=== PATIENT | male | born 1955 | race Caucasian/White ===

== ENCOUNTER 2025-01-17 11:22 | Inpatient (IN) | payer MEDICARE, MEDICAID ==
[~2025-01-17] VITALS: Ht 170.2 cm; Wt 71.7 kg
[~2025-01-17 11:22] MED LIST: AMOX-457 PO
[2025-01-17 13:14] LABS: BASOPHILS % (AUTO) 0.5 % (0.0-2.0); EOSINOPHILS % (AUTO) 0.6 % (1.0-6.0); HEMOGLOBIN 14.1 g/dL (13.5-17.5); LYMPHOCYTES # (AUTO) 1.6 K/uL (1.0-4.8); LYMPHOCYTES % (AUTO) 22.4 % (22.0-44.0); MEAN CORPUSCULAR HGB CONC 32.9 G/dL (31.0-37.0); MEAN CORPUSCULAR VOLUME 91 fL (80-100); MONOCYTES # (AUTO) 0.5 K/uL (0.1-1.0); MONOCYTES % (AUTO) 6.6 % (2.0-9.0); NEUTROPHILS # (AUTO) 5.1 K/uL (1.8-7.7); NEUTROPHILS % (AUTO) 69.9 % (40.0-70.0); PLATELET COUNT (AUTO) 110 K/uL (150-450); RED BLOOD CELL COUNT(AUTO) 4.71 MIL/uL (4.50-5.90); RED CELL DISTRIBUTION WIDTH 14.5 % (11.5-14.5); WHITE BLOOD COUNT (AUTO) 7.3 K/uL (4.5-11.0)
[2025-01-17 13:22] LABS: ANION GAP 9 mmol/L (8-16); CALCIUM, TOTAL 9.1 mg/dL (8.8-10.5); CARBON DIOXIDE 30 mmol/L (22-29); CHLORIDE 104 mmol/L (98-107); CREATININE 0.98 mg/dL (0.60-1.30); GLOMERULAR FILTR. RATE CALC > 60 mL/min (>60); GLUCOSE,RANDOM 80 mg/dL (70-110); POTASSIUM 4.4 mmol/L (3.5-5.1); SODIUM SERUM 143 mmol/L (136-145); UREA NITROGEN, BLOOD 10 mg/dL (7-18)
[2025-01-17 13:40] LABS: ALCOHOL, BLOOD (SERUM) < 3 mg/dL (0-10)
[2025-01-17 14:16] LABS: APPEARANCE,URINE CLEAR (CLEAR); BILIRUBIN,URINE NEGATIVE (NEGATIVE); COLOR,URINE LIGHT YELLOW (YELLOW); GLUCOSE, URINE (UA) NEGATIVE (NEGATIVE); KETONES,URINE NEGATIVE (NEGATIVE); LEUKOCYTE ESTERASE ,URINE NEGATIVE (NEGATIVE); NITRATE,URINE NEGATIVE (NEGATIVE); OCCULT BLOOD,URINE NEGATIVE (NEGATIVE); PROTEIN,URINE NEGATIVE (NEGATIVE); SPECIFIC GRAVITIY, URINE 1.009 (1.003-1.030); UROBILINOGEN,URINE <=1.0 mg/dL (<=1.0)
[2025-01-17 14:23] LABS: ALCOHOL, URINE DRUG SCREEN NEGATIVE (NEGATIVE); AMPHET/METH SCREEN,URINE NEGATIVE (NEGATIVE); BARBITURATE SCREEN, URINE NEGATIVE (NEGATIVE); BENZODIAZEPINES SCREEN,URINE NEGATIVE (NEGATIVE); CANNABINOID SCREEN,URINE POSITIVE (NEGATIVE); COCAINE SCREEN,URINE NEGATIVE (NEGATIVE); METHADONE SCREEN, URINE NEGATIVE (NEGATIVE); OPIATE SCREEN,URINE NEGATIVE (NEGATIVE); PHENCYCLIDINE SCREEN,URINE NEGATIVE (NEGATIVE)
[2025-01-17 16:06] LABS: COVID AG,FIA SOURCE NASAL SWAB
[2025-01-17 16:24] LABS: SARS-COV2 (COVID) ANTIGEN,FIA Negative (Negative)
[2025-01-17 17:33] VITALS: O2SAT 97
[2025-01-17 21:59] VITALS: BP 114/71; PULSE 65; RESP 15; TEMP 97.9; O2SAT 97
[2025-01-18 08:25] VITALS: BP 93/60; PULSE 72; RESP 18; TEMP 98.6; O2SAT 97
[2025-01-18] MEDS: FLUoxetine HCL 20 MG CAPSULE PO SCH (14:47)
[2025-01-18] MEDS: HALOPERIDOL 5 MG TABLET PO SCH (14:47)
[2025-01-18 21:35] VITALS: BP 98/52; PULSE 55; RESP 18; TEMP 96.5; O2SAT 95
[2025-01-19 08:30] VITALS: BP 112/66; PULSE 81; RESP 18; TEMP 98.2; O2SAT 99
[2025-01-19] MEDS: AMOX TR/POT CLAV 875 MG/125 MG TABLET PO SCH (08:53)
[2025-01-19] MEDS: NICOTINE 21 MG/24 HOUR PATCH TD PRN (15:51)
[2025-01-20 09:00] VITALS: BP 101/69; PULSE 64; RESP 16; TEMP 98.2; O2SAT 98
[2025-01-20 09:02] VITALS: RESP 17
[2025-01-20] MEDS: IBUPROFEN 600 MG TABLET PO PRN (09:02)
[2025-01-20] MEDS: ACETAMINOPHEN 325 MG TABLET PO PRN (09:02)
[2025-01-20 10:02] VITALS: RESP 16
[2025-01-20 19:36] VITALS: RESP 17
[2025-01-20 20:36] VITALS: RESP 16
[2025-01-20 21:00] VITALS: BP 105/70; PULSE 56; RESP 17; TEMP 97.9
[2025-01-21 15:04] VITALS: BP 96/65; PULSE 57; RESP 18; TEMP 97.6
[2025-01-21 22:39] VITALS: RESP 18
[2025-01-22 08:20] VITALS: BP 133/82; PULSE 61; RESP 18; TEMP 97.7; O2SAT 97
[2025-01-22] MEDS: FLUoxetine HCL 20 MG CAPSULE PO SCH (09:00)
[2025-01-22] MEDS: LORazepam 2 MG TABLET PO PRN (16:17)
[2025-01-22] MEDS: HALOPERIDOL 5 MG TABLET PO PRN (16:18)
[2025-01-22 20:22] VITALS: BP 102/60; PULSE 61; RESP 18; TEMP 98.1; O2SAT 97
[2025-01-23 09:17] VITALS: BP 114/64; PULSE 55; RESP 16; TEMP 98.1; O2SAT 98
[2025-01-23 20:10] VITALS: BP 114/74; PULSE 60; RESP 18; TEMP 97.6; O2SAT 97
[2025-01-23] MEDS: ZOLPIDEM TARTRATE 10 MG TABLET PO PRN (20:21)
[2025-01-24 08:54] VITALS: BP 123/66; PULSE 62; RESP 16; TEMP 98.4; O2SAT 97
[2025-01-24 20:31] VITALS: BP 95/60; PULSE 60; RESP 16; TEMP 98.5; O2SAT 96
[2025-01-25 08:19] VITALS: BP 105/67; PULSE 94; RESP 17; TEMP 98.2; O2SAT 96
[2025-01-25] MEDS ORDERED: FLUO-418 PO (09:55)
[2025-01-25] MEDS ORDERED: HALO5TAB23 PO (09:56)
== END 2025-01-25 12:46 | DRG 885 ==
LOC: EMS 13:44 → B2X 21:02
PROVIDERS: ADMIT Psychiatry & Neurology Child & Adolescent Psychiatry; ATTEND Psychiatry & Neurology Child & Adolescent Psychiatry
PROC: GZ56ZZZ Individual Psychotherapy, Supportive (ICD-10-PCS; principal; 2025-01-18)
PROC: GZ58ZZZ Individual Psychotherapy, Cognitive-Behavioral (ICD-10-PCS; 2025-01-18)
PROC: GZHZZZZ Group Psychotherapy (ICD-10-PCS; 2025-01-18)
DX: F33.3 Major depressive disorder, recurrent, severe with psychotic symptoms (principal); R45.851 Suicidal ideations; F60.3 Borderline personality disorder; Z20.822 Contact with and (suspected) exposure to COVID-19; F41.9 Anxiety disorder, unspecified; F17.210 Nicotine dependence, cigarettes, uncomplicated; K21.9 Gastro-esophageal reflux disease without esophagitis; J44.9 Chronic obstructive pulmonary disease, unspecified; Z79.899 Other long term (current) drug therapy
CPT/HCPCS: 80048; 80307; 81003; 85025; 99285; G0480

== ENCOUNTER 2025-01-30 13:46 | Emergency (ER) | payer MEDICAID, MEDICARE, OTHER ==
[~2025-01-30] VITALS: Ht 170.2 cm; Wt 76.0 kg
[~2025-01-30 13:46] MED LIST changes: -AMOX-457 PO; +FLUO-418 PO; +HALO5TAB23 PO
[2025-01-30 14:26] VITALS: TEMP 98.2
[2025-01-30] MEDS: MAGNESIUM SULFATE 2 GM, MVI, ADULT NO.1 WITH VIT K 10 ML, THIAMINE 100 MG, FOLIC ACID 1... IV ONE (15:13)
[2025-01-30 15:20] LABS: BASOPHILS % (AUTO) 0.4 % (0.0-2.0); EOSINOPHILS % (AUTO) 2.1 % (1.0-6.0); HEMATOCRIT 40.6 % (41-53); HEMOGLOBIN 13.5 g/dL (13.5-17.5); LYMPHOCYTES # (AUTO) 2.3 K/uL (1.0-4.8); LYMPHOCYTES % (AUTO) 25.1 % (22.0-44.0); MEAN CORPUSCULAR HEMOGLOBIN 30.3 pg (26.0-34.0); MEAN CORPUSCULAR HGB CONC 33.1 G/dL (31.0-37.0); MEAN CORPUSCULAR VOLUME 91 fL (80-100); MONOCYTES # (AUTO) 0.3 K/uL (0.1-1.0); MONOCYTES % (AUTO) 3.2 % (2.0-9.0); NEUTROPHILS # (AUTO) 6.4 K/uL (1.8-7.7); NEUTROPHILS % (AUTO) 69.2 % (40.0-70.0); PLATELET COUNT (AUTO) 128 K/uL (150-450); RED BLOOD CELL COUNT(AUTO) 4.45 MIL/uL (4.50-5.90); RED CELL DISTRIBUTION WIDTH 14.7 % (11.5-14.5); WHITE BLOOD COUNT (AUTO) 9.3 K/uL (4.5-11.0)
[2025-01-30 15:28] LABS: ANION GAP 8 mmol/L (8-16); CALCIUM, TOTAL 8.5 mg/dL (8.8-10.5); CARBON DIOXIDE 28 mmol/L (22-29); CHLORIDE 106 mmol/L (98-107); CREATININE 0.81 mg/dL (0.60-1.30); GLOMERULAR FILTR. RATE CALC > 60 mL/min (>60); GLUCOSE,RANDOM 90 mg/dL (70-110); POTASSIUM 3.8 mmol/L (3.5-5.1); SODIUM SERUM 142 mmol/L (136-145); UREA NITROGEN, BLOOD 17 mg/dL (7-18)
[2025-01-30 15:50] LABS: ALCOHOL, BLOOD (SERUM) 315 mg/dL (0-10)
[2025-01-30 16:29] LABS: AMPHET/METH SCREEN,URINE NEGATIVE (NEGATIVE); BARBITURATE SCREEN, URINE NEGATIVE (NEGATIVE); BENZODIAZEPINES SCREEN,URINE NEGATIVE (NEGATIVE); CANNABINOID SCREEN,URINE POSITIVE (NEGATIVE); COCAINE SCREEN,URINE NEGATIVE (NEGATIVE); METHADONE SCREEN, URINE NEGATIVE (NEGATIVE); OPIATE SCREEN,URINE NEGATIVE (NEGATIVE); PHENCYCLIDINE SCREEN,URINE NEGATIVE (NEGATIVE)
[2025-01-30 16:34] LABS: ALCOHOL, URINE DRUG SCREEN POSITIVE (NEGATIVE)
[2025-01-30 22:44] VITALS: BP 106/59; PULSE 56; RESP 19; O2SAT 95
== END 2025-01-30 23:35 | disposition home or self-care (01) ==
LOC: EMS 13:46
DX: F10.129 Alcohol abuse with intoxication, unspecified (principal); F12.90 Cannabis use, unspecified, uncomplicated; F31.9 Bipolar disorder, unspecified; F17.210 Nicotine dependence, cigarettes, uncomplicated; Z79.899 Other long term (current) drug therapy; Y90.8 Blood alcohol level of 240 mg/100 ml or more
CPT/HCPCS: 99285; 96365; 96366; 80048; 85025; 36415; 80307; J3490 ×2; J3411; J3475; J7030; G0480

== ENCOUNTER 2025-02-17 15:18 | Inpatient (IN) | payer MEDICARE, MEDICAID ==
[~2025-02-17] VITALS: Ht 170.2 cm; Wt 74.5 kg
[2025-02-17] MEDS: SODIUM CHLORIDE 0.9% 1,000 ML IV ONE ×2 (15:58→18:55)
[2025-02-17 16:15] LABS: ANION GAP 12 mmol/L (8-16); CALCIUM, TOTAL 8.4 mg/dL (8.8-10.5); CARBON DIOXIDE 24 mmol/L (22-29); CHLORIDE 107 mmol/L (98-107); CREATININE 1.05 mg/dL (0.60-1.30); GLOMERULAR FILTR. RATE CALC > 60 mL/min (>60); GLUCOSE,RANDOM 79 mg/dL (70-110); POTASSIUM 3.8 mmol/L (3.5-5.1); SODIUM SERUM 143 mmol/L (136-145); UREA NITROGEN, BLOOD 11 mg/dL (7-18)
[2025-02-17 16:16] LABS: BASOPHILS % (AUTO) 1.6 % (0.0-2.0); HEMATOCRIT 34.6 % (41-53); HEMOGLOBIN 11.6 g/dL (13.5-17.5); LYMPHOCYTES # (AUTO) 2.1 K/uL (1.0-4.8); LYMPHOCYTES % (AUTO) 26.8 % (22.0-44.0); MEAN CORPUSCULAR HEMOGLOBIN 30.2 pg (26.0-34.0); MEAN CORPUSCULAR HGB CONC 33.7 G/dL (31.0-37.0); MEAN CORPUSCULAR VOLUME 90 fL (80-100); MONOCYTES # (AUTO) 0.3 K/uL (0.1-1.0); MONOCYTES % (AUTO) 3.6 % (2.0-9.0); NEUTROPHILS # (AUTO) 5.3 K/uL (1.8-7.7); PLATELET COUNT (AUTO) 136 K/uL (150-450); RED BLOOD CELL COUNT(AUTO) 3.86 MIL/uL (4.50-5.90); RED CELL DISTRIBUTION WIDTH 14.7 % (11.5-14.5); WHITE BLOOD COUNT (AUTO) 7.9 K/uL (4.5-11.0)
[2025-02-17 16:21] LABS: ALBUMIN 2.6 g/dL (3.4-5.0); BILIRUBIN,DIRECT 0.1 mg/dL (0.00-0.20); BILIRUBIN,TOTAL 0.3 mg/dL (0.1-1.0)
[2025-02-17 16:23] LABS: COVID AG,FIA SOURCE NASAL SWAB
[2025-02-17 16:52] LABS: INFLUENZA TYPE A NEGATIVE FOR TYPE A (NEGATIVE); INFLUENZA TYPE B NEGATIVE FOR TYPE B (NEGATIVE)
[2025-02-17 16:56] LABS: SARS-COV2 (COVID) ANTIGEN,FIA Negative (Negative)
[2025-02-17 19:41] LABS: APPEARANCE,URINE CLEAR (CLEAR); BILIRUBIN,URINE NEGATIVE (NEGATIVE); COLOR,URINE YELLOW (YELLOW); GLUCOSE, URINE (UA) NEGATIVE (NEGATIVE); LEUKOCYTE ESTERASE ,URINE NEGATIVE (NEGATIVE); NITRATE,URINE NEGATIVE (NEGATIVE); OCCULT BLOOD,URINE TRACE (NEGATIVE); PROTEIN,URINE TRACE mg/dL (NEGATIVE)
[2025-02-17 19:47] LABS: ALCOHOL, URINE DRUG SCREEN POSITIVE (NEGATIVE); AMPHET/METH SCREEN,URINE NEGATIVE (NEGATIVE); BARBITURATE SCREEN, URINE NEGATIVE (NEGATIVE); BENZODIAZEPINES SCREEN,URINE NEGATIVE (NEGATIVE); CANNABINOID SCREEN,URINE POSITIVE (NEGATIVE); COCAINE SCREEN,URINE NEGATIVE (NEGATIVE); METHADONE SCREEN, URINE NEGATIVE (NEGATIVE); OPIATE SCREEN,URINE NEGATIVE (NEGATIVE); PHENCYCLIDINE SCREEN,URINE NEGATIVE (NEGATIVE)
[2025-02-17 20:08] LABS: BACTERIA,URINE None Seen /HPF (None Seen); SQUAMOUS EPITHELIAL CELL,UR None Seen /LPF (None Seen); WBC,URINE None Seen /HPF (0-5)
[2025-02-17] MEDS ORDERED: LORazepam 2 MG/ML VIAL IVP PRN (23:00)
[2025-02-17] MEDS ORDERED: ONDANSETRON HCL 4 MG/2 ML VIAL IVP PRN (23:00)
[2025-02-17 23:49] LABS: LACTIC ACID 3.7 mmol/L (0.4-2.0)
[2025-02-18] MEDS: HEPARIN SODIUM,PORCINE 5,000 UNITS/ML VIAL SQ SCH (00:01)
[2025-02-18] MEDS: PIPERACILLIN/TAZO 3.375 GM/D5W 50 ML IV SCH (00:01)
[2025-02-18] MEDS: 1: MAGNESIUM SULFATE 2 GM, MVI, ADULT NO.1 WITH VIT K 10 ML, THIAMINE 100 MG, FOLIC ACID IV SCH (00:07)
[2025-02-18 05:34] LABS: BASOPHILS % (AUTO) 0.3 % (0.0-2.0); EOSINOPHILS % (AUTO) 3.4 % (1.0-6.0); HEMATOCRIT 37.4 % (41-53); HEMOGLOBIN 12.5 g/dL (13.5-17.5); LYMPHOCYTES # (AUTO) 1.9 K/uL (1.0-4.8); LYMPHOCYTES % (AUTO) 29.1 % (22.0-44.0); MEAN CORPUSCULAR HEMOGLOBIN 29.9 pg (26.0-34.0); MEAN CORPUSCULAR HGB CONC 33.4 G/dL (31.0-37.0); MEAN CORPUSCULAR VOLUME 90 fL (80-100); MONOCYTES # (AUTO) 0.3 K/uL (0.1-1.0); MONOCYTES % (AUTO) 5.2 % (2.0-9.0); PLATELET COUNT (AUTO) 124 K/uL (150-450); RED BLOOD CELL COUNT(AUTO) 4.18 MIL/uL (4.50-5.90); RED CELL DISTRIBUTION WIDTH 14.9 % (11.5-14.5); WHITE BLOOD COUNT (AUTO) 6.5 K/uL (4.5-11.0)
[2025-02-18 05:38] LABS: ANION GAP 6 mmol/L (8-16); CALCIUM, TOTAL 8.4 mg/dL (8.8-10.5); CARBON DIOXIDE 29 mmol/L (22-29); CHLORIDE 109 mmol/L (98-107); CREATININE 0.85 mg/dL (0.60-1.30); GLOMERULAR FILTR. RATE CALC > 60 mL/min (>60); GLUCOSE,RANDOM 97 mg/dL (70-110); POTASSIUM 3.6 mmol/L (3.5-5.1); SODIUM SERUM 144 mmol/L (136-145); UREA NITROGEN, BLOOD 9 mg/dL (7-18)
[2025-02-18 08:28] VITALS: BP 133/73; PULSE 62; RESP 18; TEMP 97.5; O2SAT 98
[2025-02-18] MEDS: DOCUSATE SODIUM 100 MG CAPSULE PO SCH (08:41)
[2025-02-18] MEDS ORDERED: IOHEXOL 350 MG/ML 100 ML VIAL ONE (09:10)
[2025-02-18] MEDS ORDERED: 0.9% SODIUM CHLORIDE 10 ML SYRINGE IVP ONE (09:10)
[2025-02-18] MEDS ORDERED: SODIUM CHLORIDE 0.9% 100 ML ONE (09:11)
[2025-02-18 11:59] VITALS: BP 133/84; PULSE 57; RESP 18; TEMP 98.6; O2SAT 98
[2025-02-18] MEDS ORDERED: SODIUM CHLORIDE 0.9% 1,000 ML ONE (13:28)
[2025-02-18 15:19] VITALS: BP 122/85; PULSE 55; RESP 18; TEMP 97.9; O2SAT 98
[2025-02-18 19:58] VITALS: BP 120/84; PULSE 57; RESP 17; TEMP 98.1; O2SAT 99
[2025-02-18] MEDS: ACETAMINOPHEN 325 MG TABLET PO PRN (20:12)
[2025-02-18 23:57] VITALS: BP 112/76; PULSE 59; RESP 16; TEMP 98.2; O2SAT 97
[2025-02-19] MEDS: LORazepam 2 MG/ML VIAL IVP PRN (00:26)
[2025-02-19 03:38] VITALS: BP 144/90; PULSE 53; RESP 16; TEMP 97.7; O2SAT 96
[2025-02-19 08:00] VITALS: BP 139/92; PULSE 52; RESP 16; TEMP 97.5; O2SAT 96
[2025-02-19 12:05] VITALS: BP 103/85; PULSE 60; RESP 18; TEMP 97.9; O2SAT 100
[2025-02-19 16:05] VITALS: BP 123/86; PULSE 57; RESP 16; TEMP 98; O2SAT 97
[2025-02-19] MEDS ORDERED: SODIUM CHLORIDE 0.9% 1,000 ML ONE (17:19)
[2025-02-19] MEDS ORDERED: AMOX-457 PO ×2 (19:58→21:45)
[2025-02-19 20:46] VITALS: BP 116/80; PULSE 56; RESP 18; TEMP 97.7; O2SAT 98
[2025-02-19 23:16] VITALS: BP 118/76; PULSE 54; RESP 18; TEMP 97.7; O2SAT 97
[2025-02-20] MEDS ORDERED: SODIUM CHLORIDE 0.9% 500 ML IV ONE (00:28)
[2025-02-20 06:18] VITALS: BP 131/77; PULSE 56; RESP 18; TEMP 97.5; O2SAT 97
[2025-02-20 08:04] VITALS: BP 146/103; PULSE 56; RESP 18; TEMP 97.5; O2SAT 100
== END 2025-02-20 12:20 | disposition home or self-care (01) | DRG 314 ==
LOC: EMS 15:18 → EDH 22:56 → 5S 02-18 08:00 → 4E 02-19 23:00
PROVIDERS: ADMIT Internal Medicine; ATTEND Internal Medicine
DX: I95.9 Hypotension, unspecified (principal); G92.8 Other toxic encephalopathy; J18.8 Other pneumonia, unspecified organism; Z59.00 Homelessness unspecified; E87.20 Acidosis, unspecified; F10.939 Alcohol use, unspecified with withdrawal, unspecified; J98.11 Atelectasis; E86.0 Dehydration; Z20.822 Contact with and (suspected) exposure to COVID-19; F10.929 Alcohol use, unspecified with intoxication, unspecified; D69.6 Thrombocytopenia, unspecified; F31.9 Bipolar disorder, unspecified; J98.4 Other disorders of lung; Y90.6 Blood alcohol level of 120-199 mg/100 ml; F17.210 Nicotine dependence, cigarettes, uncomplicated; F60.3 Borderline personality disorder; Z79.899 Other long term (current) drug therapy
CPT/HCPCS: 71045; 71275; 80048; 80076; 80307; 81001; 83605; 83735; 85025; 87040; 87081; 87804; 93005; 96360; 96361; 99285; G0378; G0480; J1644; J2060; J2543; J3411; J3475; J3490; J7030; J7040; J7050; 36415-L1; 36415-TC

== ENCOUNTER 2025-03-18 15:24 | Inpatient (IN) | payer MEDICARE, MEDICAID ==
[~2025-03-18] VITALS: Ht 165.1 cm; Wt 73.2 kg
[~2025-03-18 15:24] MED LIST changes: +AMOX-457 PO; -FLUO-418 PO; -HALO5TAB23 PO
[2025-03-18 16:49] LABS: RED BLOOD CELL COUNT(AUTO) 4.45 MIL/uL (4.50-5.90); RED CELL DISTRIBUTION WIDTH 16.4 % (11.5-14.5); WHITE BLOOD COUNT (AUTO) 5.6 K/uL (4.5-11.0)
[2025-03-18 16:53] LABS: CALCIUM, TOTAL 9.0 mg/dL (8.8-10.5); CREATININE 0.99 mg/dL (0.60-1.30); GLOMERULAR FILTR. RATE CALC > 60 mL/min (>60); GLUCOSE,RANDOM 111 mg/dL (70-110); SODIUM SERUM 134 mmol/L (136-145); UREA NITROGEN, BLOOD 13 mg/dL (7-18)
[2025-03-18 17:07] LABS: COVID AG,FIA SOURCE NASAL SWAB
[2025-03-18 17:13] LABS: PLATELET COUNT (AUTO) 61 K/uL (150-450)
[2025-03-18 17:27] LABS: SARS-COV2 (COVID) ANTIGEN,FIA Negative (Negative)
[2025-03-18 17:32] LABS: APPEARANCE,URINE CLEAR (CLEAR); GLUCOSE, URINE (UA) NEGATIVE (NEGATIVE); LEUKOCYTE ESTERASE ,URINE NEGATIVE (NEGATIVE); NITRATE,URINE NEGATIVE (NEGATIVE); OCCULT BLOOD,URINE NEGATIVE (NEGATIVE); PH,URINE DRUG SCREEN 6.5 (5.0-8.0); SPECIFIC GRAVITIY, URINE 1.018 (1.003-1.030)
[2025-03-18 17:40] LABS: ALCOHOL, URINE DRUG SCREEN POSITIVE (NEGATIVE); AMPHET/METH SCREEN,URINE NEGATIVE (NEGATIVE); BARBITURATE SCREEN, URINE NEGATIVE (NEGATIVE); CANNABINOID SCREEN,URINE POSITIVE (NEGATIVE); COCAINE SCREEN,URINE NEGATIVE (NEGATIVE); METHADONE SCREEN, URINE NEGATIVE (NEGATIVE)
[2025-03-18 20:09] VITALS: O2SAT 96
[2025-03-18 22:31] VITALS: BP 127/84; PULSE 63; RESP 16; TEMP 97.4; O2SAT 96
[2025-03-19 08:30] VITALS: BP 150/101; PULSE 78; RESP 18; TEMP 98; O2SAT 97
[2025-03-19 09:04] LABS: RED BLOOD CELL COUNT(AUTO) 4.46 MIL/uL (4.50-5.90); RED CELL DISTRIBUTION WIDTH 16.5 % (11.5-14.5); WHITE BLOOD COUNT (AUTO) 4.1 K/uL (4.5-11.0)
[2025-03-19 09:30] LABS: ASPARTATE AMINOTRANSFERASE 65 U/L (15-37); CALCIUM, TOTAL 8.8 mg/dL (8.8-10.5); CHOL/HDL RATIO 1.8 (4.2-7.3); CREATININE 0.75 mg/dL (0.60-1.30); GLOMERULAR FILTR. RATE CALC > 60 mL/min (>60); GLUCOSE,RANDOM 64 mg/dL (70-110); LDL CHOL (CALC.) 73 mg/dL (0-130); SODIUM SERUM 137 mmol/L (136-145); TOTAL PROTEIN, SERUM 6.5 g/dL (6.4-8.2); UREA NITROGEN, BLOOD 10 mg/dL (7-18)
[2025-03-19 09:51] LABS: PLATELET COUNT (AUTO) 54 K/uL (150-450)
[2025-03-19 09:54] LABS: PLATELET MORPHOLOGY COMMENT GIANT PLTS PRESENT
[2025-03-19] MEDS ORDERED: IBUPROFEN 400 MG TABLET PO PRN (14:00)
[2025-03-19] MEDS ORDERED: LOPERAMIDE HCL 2 MG CAPSULE PO PRN (14:00)
[2025-03-19] MEDS ORDERED: MAG HYDROX/ALUMINUM HYD/SIMETH ES 30 ML SUSPENSION UDCUP PO PRN (14:00)
[2025-03-19] MEDS ORDERED: PETROLATUM,WHITE 28 GM JELLY TP PRN (14:00)
[2025-03-19] MEDS ORDERED: DOCUSATE SODIUM 100 MG CAPSULE PO PRN (14:00)
[2025-03-19] MEDS ORDERED: GuaiFENesin/D-METHORPHAN [SUGAR-FREE] 200-20MG/10 ML SYRUP UDCUP PO PRN (14:00)
[2025-03-19] MEDS ORDERED: ALBUTEROL SULFATE HFA 90 MCG/PUFF 8 GM INHALER IH PRN (14:00)
[2025-03-19] MEDS ORDERED: MAGNESIUM HYDROXIDE SUSPENSION 30 ML UDCUP PO PRN (14:00)
[2025-03-19] MEDS ORDERED: ONDANSETRON 4 MG TABLET PO PRN (14:00)
[2025-03-19] MEDS ORDERED: ACETAMINOPHEN 325 MG TABLET PO PRN (14:00)
[2025-03-19 20:17] VITALS: BP 130/87; PULSE 70; RESP 18; TEMP 98.4; O2SAT 98
[2025-03-19] MEDS: POTASSIUM CHLORIDE 20 MEQ ER TABLET PO ONE (21:26)
[2025-03-20 10:11] LABS: CHOL/HDL RATIO 1.8 (4.2-7.3); LDL CHOL (CALC.) 73.0 mg/dL (0-130)
[2025-03-20 14:19] VITALS: BP 116/83; PULSE 71; RESP 17; TEMP 97.1; O2SAT 97
[2025-03-20 20:38] VITALS: BP 118/75; PULSE 93; RESP 18; TEMP 97.7; O2SAT 98
[2025-03-20] MEDS: OLANZapine 7.5 MG TABLET PO SCH (20:38)
[2025-03-21 08:35] LABS: APPEARANCE,URINE CLEAR (CLEAR); GLUCOSE, URINE (UA) NEGATIVE (NEGATIVE); LEUKOCYTE ESTERASE ,URINE NEGATIVE (NEGATIVE); NITRATE,URINE NEGATIVE (NEGATIVE); OCCULT BLOOD,URINE NEGATIVE (NEGATIVE); PH,URINE DRUG SCREEN 7.5 (5.0-8.0); SPECIFIC GRAVITIY, URINE 1.010 (1.003-1.030)
[2025-03-21 08:40] LABS: AMPHET/METH SCREEN,URINE NEGATIVE (NEGATIVE); BARBITURATE SCREEN, URINE NEGATIVE (NEGATIVE); CANNABINOID SCREEN,URINE POSITIVE (NEGATIVE); COCAINE SCREEN,URINE NEGATIVE (NEGATIVE); METHADONE SCREEN, URINE NEGATIVE (NEGATIVE)
[2025-03-21 08:42] LABS: ALCOHOL, URINE DRUG SCREEN NEGATIVE (NEGATIVE)
[2025-03-21 08:43] VITALS: BP 132/81; PULSE 70; RESP 18; TEMP 97.8; O2SAT 95
[2025-03-21 20:42] VITALS: BP 110/96; PULSE 72; RESP 16; TEMP 97.9; O2SAT 72
[2025-03-22 08:25] VITALS: BP 118/98; PULSE 77; RESP 18; TEMP 98.2; O2SAT 96
[2025-03-22] MEDS: DESVENLAFAXINE SUCCINATE 50 MG ER TABLET PO SCH (11:30)
[2025-03-22 20:44] VITALS: RESP 17
[2025-03-23 08:24] VITALS: BP 129/90; PULSE 75; RESP 18; TEMP 97.6; O2SAT 99
[2025-03-23 20:13] VITALS: BP 105/81; PULSE 67; RESP 18; TEMP 97.3; O2SAT 99
[2025-03-24 08:09] VITALS: BP 109/77; PULSE 68; RESP 17; TEMP 97.8; O2SAT 99
[2025-03-24 20:00] VITALS: BP 128/88; PULSE 63; RESP 17; TEMP 97.4; O2SAT 97
[2025-03-25 08:29] VITALS: BP 122/81; PULSE 60; RESP 17; TEMP 97.7; O2SAT 97
[2025-03-25 20:10] VITALS: BP 112/84; PULSE 65; RESP 18; TEMP 97.7; O2SAT 91
[2025-03-26 08:30] VITALS: BP 104/71; PULSE 62; RESP 17; TEMP 98.1; O2SAT 97
[2025-03-26 20:19] VITALS: BP 111/80; PULSE 61; RESP 18; TEMP 97.3; O2SAT 99
[2025-03-27 08:35] VITALS: BP 118/88; PULSE 62; RESP 18; TEMP 97.5; O2SAT 98
[2025-03-27 20:27] VITALS: BP 116/79; PULSE 64; RESP 18; TEMP 98.2; O2SAT 97
[2025-03-27] MEDS: ZOLPIDEM TARTRATE 10 MG TABLET PO PRN (21:59)
[2025-03-28 08:33] VITALS: BP 105/70; PULSE 64; RESP 18; TEMP 98.1; O2SAT 100
[2025-03-28] MEDS: NICOTINE 14 MG/24 HOUR PATCH TD PRN (19:28)
[2025-03-28 20:19] VITALS: BP 120/74; PULSE 60; RESP 17; TEMP 97.9; O2SAT 97
[2025-03-29 08:12] VITALS: BP 103/73; PULSE 59; RESP 17; TEMP 97.7; O2SAT 98
[2025-03-29 20:23] VITALS: BP 105/86; PULSE 96; RESP 17; TEMP 97.8; O2SAT 99
[2025-03-30 08:28] VITALS: BP 103/69; PULSE 63; RESP 18; TEMP 97.8; O2SAT 98
[2025-03-30 20:06] VITALS: BP 100/86; PULSE 71; RESP 19; TEMP 97.6; O2SAT 95
[2025-03-31 08:29] VITALS: BP 101/66; PULSE 60; RESP 18; TEMP 98.1; O2SAT 98
[2025-03-31 20:16] VITALS: BP 114/82; PULSE 68; RESP 17; TEMP 99.7; O2SAT 98
[2025-04-01 08:39] VITALS: BP 111/72; PULSE 62; RESP 17; TEMP 97.3; O2SAT 98
[2025-04-01 21:46] VITALS: BP 121/87; PULSE 64; RESP 17; TEMP 98.1; O2SAT 98
[2025-04-02 08:22] VITALS: BP 107/66; PULSE 64; RESP 18; TEMP 98.8; O2SAT 97
[2025-04-02 20:10] VITALS: BP 131/95; PULSE 65; RESP 19; TEMP 98.2; O2SAT 98
[2025-04-03 08:16] VITALS: BP 115/78; PULSE 67; RESP 18; TEMP 97.8; O2SAT 98
[2025-04-03 20:07] VITALS: BP 115/83; PULSE 64; RESP 18; TEMP 98.9; O2SAT 97
[2025-04-04 08:35] VITALS: BP 131/94; PULSE 70; RESP 19; TEMP 98.3; O2SAT 98
[2025-04-04] MEDS: NICOTINE 14 MG/24 HOUR PATCH TD SCH (09:04)
[2025-04-04 20:25] VITALS: BP 136/81; PULSE 68; RESP 18; TEMP 97.8; O2SAT 98
[2025-04-05 08:55] VITALS: BP 106/64; PULSE 58; RESP 17; TEMP 97.5; O2SAT 97
[2025-04-05 20:05] VITALS: BP 117/88; PULSE 65; RESP 18; TEMP 97.6; O2SAT 100
[2025-04-06 08:16] VITALS: BP 100/60; PULSE 61; RESP 18; TEMP 98.2; O2SAT 98
[2025-04-06] MEDS: BENZTROPINE MESYLATE 1 MG TABLET PO SCH (17:12)
[2025-04-06 20:07] VITALS: BP 110/75; PULSE 62; RESP 16; TEMP 98.1; O2SAT 97
[2025-04-07 08:12] LABS: PLATELET COUNT (AUTO) 139 K/uL (150-450); RED BLOOD CELL COUNT(AUTO) 4.40 MIL/uL (4.50-5.90); RED CELL DISTRIBUTION WIDTH 15.5 % (11.5-14.5); WHITE BLOOD COUNT (AUTO) 5.6 K/uL (4.5-11.0)
[2025-04-07 08:17] VITALS: BP 100/62; PULSE 64; RESP 19; TEMP 97.7; O2SAT 100
[2025-04-07] MEDS ORDERED: BENZ-247 PO (12:29)
[2025-04-07] MEDS ORDERED: DESV50TA35 PO (12:29)
[2025-04-07] MEDS ORDERED: OLAN5TAB52 PO (12:30)
[2025-04-07] MEDS ORDERED: OLAN7.5T22 PO (12:30)
[2025-04-07] MEDS ORDERED: ALBU18HF12 IH (12:33)
== END 2025-04-07 15:10 | disposition home or self-care (01) | DRG 885 ==
LOC: EMS 15:25 → B2X 20:19
PROVIDERS: ADMIT Psychiatry & Neurology Child & Adolescent Psychiatry; ATTEND Psychiatry & Neurology Child & Adolescent Psychiatry
PROC: GZ56ZZZ Individual Psychotherapy, Supportive (ICD-10-PCS; 2025-03-19)
PROC: GZ58ZZZ Individual Psychotherapy, Cognitive-Behavioral (ICD-10-PCS; 2025-03-21)
PROC: GZHZZZZ Group Psychotherapy (ICD-10-PCS; principal; 2025-03-31)
DX: F25.1 Schizoaffective disorder, depressive type (principal); F10.239 Alcohol dependence with withdrawal, unspecified; R45.851 Suicidal ideations; Z20.822 Contact with and (suspected) exposure to COVID-19; E87.6 Hypokalemia; J45.909 Unspecified asthma, uncomplicated; D72.819 Decreased white blood cell count, unspecified; F17.210 Nicotine dependence, cigarettes, uncomplicated; F12.90 Cannabis use, unspecified, uncomplicated; F41.9 Anxiety disorder, unspecified; F31.9 Bipolar disorder, unspecified; I10 Essential (primary) hypertension
CPT/HCPCS: 80048; 80053; 80061; 80307; 81003; 83036; 84132; 84439; 84443; 85025; 93005; 99285; G0480

== ENCOUNTER 2025-06-06 15:21 | Emergency (ER) | payer MEDICARE, MEDICAID ==
[~2025-06-06] VITALS: Ht 167.6 cm; Wt 77.0 kg
[~2025-06-06 15:21] MED LIST changes: +ALBU18HF12 IH; -AMOX-457 PO; +BENZ-247 PO; +DESV50TA35 PO; +OLAN5TAB52 PO; +OLAN7.5T22 PO
[2025-06-06 15:29] VITALS: TEMP 98.5
[2025-06-06 17:12] LABS: PLATELET COUNT (AUTO) 120 K/uL (150-450); RED BLOOD CELL COUNT(AUTO) 4.32 MIL/uL (4.50-5.90); RED CELL DISTRIBUTION WIDTH 14.9 % (11.5-14.5); WHITE BLOOD COUNT (AUTO) 8.4 K/uL (4.5-11.0)
[2025-06-06 17:18] LABS: CALCIUM, TOTAL 8.5 mg/dL (8.8-10.5); CREATININE 1.04 mg/dL (0.60-1.30); GLOMERULAR FILTR. RATE CALC > 60 mL/min (>60); GLUCOSE,RANDOM 83 mg/dL (70-110); SODIUM SERUM 136 mmol/L (136-145); UREA NITROGEN, BLOOD 10 mg/dL (7-18)
[2025-06-06 17:28] LABS: TROPONIN I-HIGH SENSITIVITY 7 ng/L (<76)
[2025-06-06 18:15] VITALS: BP 118/76; PULSE 70; RESP 20; O2SAT 97
== END 2025-06-06 18:40 | disposition home or self-care (01) ==
LOC: EMS 15:21
DX: F10.20 Alcohol dependence, uncomplicated (principal); R07.89 Other chest pain; R06.02 Shortness of breath; F41.9 Anxiety disorder, unspecified; F31.9 Bipolar disorder, unspecified; F25.9 Schizoaffective disorder, unspecified; F12.90 Cannabis use, unspecified, uncomplicated; F17.210 Nicotine dependence, cigarettes, uncomplicated; Z79.899 Other long term (current) drug therapy; Y90.9 Presence of alcohol in blood, level not specified
CPT/HCPCS: 71045; 80048; 84484; 85025; 93005; 99285; 36415-L1; 36415-TC

== ENCOUNTER 2025-08-03 21:33 | Emergency (ER) | payer MEDICARE, MEDICAID ==
[~2025-08-03] VITALS: Ht 170.2 cm; Wt 68.2 kg
[2025-08-03 22:23] LABS: CALCIUM, TOTAL 8.7 mg/dL (8.8-10.5); CREATININE 0.62 mg/dL (0.60-1.30); GLOMERULAR FILTR. RATE CALC > 60 mL/min (>60); GLUCOSE,RANDOM 99 mg/dL (70-110); PLATELET COUNT (AUTO) 99 K/uL (150-450); RED BLOOD CELL COUNT(AUTO) 4.39 MIL/uL (4.50-5.90); RED CELL DISTRIBUTION WIDTH 14.6 % (11.5-14.5); SODIUM SERUM 139 mmol/L (136-145); UREA NITROGEN, BLOOD 9 mg/dL (7-18); WHITE BLOOD COUNT (AUTO) 5.0 K/uL (4.5-11.0)
[2025-08-03 22:27] LABS: ASPARTATE AMINOTRANSFERASE 27 U/L (15-37); TOTAL PROTEIN, SERUM 7.2 g/dL (6.4-8.2)
[2025-08-03 22:28] LABS: ALCOHOL, BLOOD (SERUM) < 3 mg/dL (0-10)
[2025-08-03 22:34] LABS: TROPONIN I-HIGH SENSITIVITY 10 ng/L (<76)
[2025-08-03 22:52] VITALS: BP 133/82; PULSE 57; RESP 16; TEMP 97.5; O2SAT 99
[2025-08-03 23:29] LABS: COVID AG,FIA SOURCE NASAL SWAB
[2025-08-03 23:49] LABS: SARS-COV2 (COVID) ANTIGEN,FIA Negative (Negative)
== END 2025-08-04 03:02 | disposition home or self-care (01) ==
LOC: EMS 21:33
DX: R07.89 Other chest pain (principal); F25.9 Schizoaffective disorder, unspecified; F31.9 Bipolar disorder, unspecified; F41.9 Anxiety disorder, unspecified; F10.20 Alcohol dependence, uncomplicated; F12.90 Cannabis use, unspecified, uncomplicated; F17.210 Nicotine dependence, cigarettes, uncomplicated; Z98.890 Other specified postprocedural states; Z79.899 Other long term (current) drug therapy; Z20.822 Contact with and (suspected) exposure to COVID-19; Y90.9 Presence of alcohol in blood, level not specified
CPT/HCPCS: 99285; 71045; 87426; 80048; 80076; 83880; 84484; 85025; 36415; 93005; G0480